=== PATIENT | female | born 1960 | race Caucasian/White ===

== ENCOUNTER 2018-12-23 10:14 | Day surgery (SDC) | payer BC ==
[2018-12-22 09:59] VITALS: BMI 28.6
[~2018-12-23 10:14] MED LIST: LACTATED RINGERS 1,000 ML IV SCH; LIDOCAINE 1% 20 ML VIAL (10MG/ML) FOR IV START INTRADERMA PRN
[2018-12-23 10:49] VITALS: RESP 16; TEMP 97
[2018-12-23] MEDS ORDERED: PROPOFOL 10 MG/ML 20 ML VIAL IV ONE (11:12)
[2018-12-23] MEDS ORDERED: LIDOCAINE 1% INJ 10MG/ML (20 ML MDV) ONE (11:12)
--- NOTE | 2018-12-23 11:43 | P.PCN ---
Date of Procedure: 12/23/18 Procedure(s) Performed: Procedure: Esophagogastroduodenoscopy and biopsy. Preoperative diagnosis: Chronic reflux symptoms and family history of esophageal cancer in her brother. Postoperative diagnosis: 1. Diminutive polyp in the mid-esophagus biopsy. 2. Sliding hiatal hernia with no obvious esophagitis or complicated reflux disease. 3. Mild antral gastritis and minimal duodenitis. 4. Biopsies obtained from the duodenum, antrum and esophagus. Preparation and sedation: Was provided by anesthesia. Brief clinical history: The patient is a 58-year-old female who is scheduled for this evaluation because of chronic reflux symptoms for which she takes as needed [id number] antacids. Her brother had esophageal cancer at age 63. The patient has no alarm symptoms. She had a screening colonoscopy with me in November 2015 because of family history of colon cancer in her mother which was within normal limits but had no prior upper endoscopy. Procedure: With the patient on her left lateral decubitus position and after informed consent and adequate sedation, I passed the Olympus-GIF 190 video upper endoscope through the cricopharyngeus down the esophagus. There was a small/diminutive polyp in the midesophagus which was biopsied. GE junction was around 38 cm from the incisors and there was a sliding hiatal hernia but no obvious esophagitis or any strictures or [place]'s esophagus. The endoscope was then passed into the stomach which was insufflated with air and inspected in detail including the retroflex view in the cardia. There was mottling and erythema in the antrum but no ulcers or erosions. Pyloric channel did not show any ulcers. Duodenal bulb showed minimal erythema but no ulcers. Post bulbar area and descending duodenum were within normal limits. I obtained biopsies from the duodenum, antrum and esophagus in addition to the esophageal polyp then the endoscope was withdrawn. The patient tolerated the procedure well. Plan: The patient was reassured. Will await biopsy results. Further plans will be made based on her course and biopsy results. I would consider repeat upper endoscopy at the time of her screening colonoscopies based on her course.
[2018-12-23 11:49] VITALS: BP 112/74; PULSE 63
== END 2018-12-23 12:21 | disposition home or self-care (01) ==
LOC: ORWHC2ENDO 10:14
DX: K29.50 Unspecified chronic gastritis without bleeding (principal); K29.80 Duodenitis without bleeding; D13.0 Benign neoplasm of esophagus; K21.9 Gastro-esophageal reflux disease without esophagitis; K44.9 Diaphragmatic hernia without obstruction or gangrene; Z80.0 Family history of malignant neoplasm of digestive organs; K58.9 Irritable bowel syndrome, unspecified; E03.9 Hypothyroidism, unspecified; Z79.1 Long term (current) use of non-steroidal anti-inflammatories (NSAID); Z79.82 Long term (current) use of aspirin; Z79.890 Hormone replacement therapy
CPT/HCPCS: 88305; 43239; J2001; J2704

== ENCOUNTER → 2019-01-01 | Outpatient (CLI) | payer BC ==
--- NOTE | 2019-01-01 16:12 | CTL ---
EXAMINATION TYPE: CT Low Dose Lung DATE OF EXAM ORDERED: 01/01/2019 HISTORY: 58-year-old female Personal history of tobacco use. Lung cancer screening CT DLP: 122.[address] CTDI: 3.5 mGy Automated exposure control for dose reduction was used. SCREENING VISIT: Baseline COMPARISON: None TECHNIQUE: Low dose computed tomography scan was performed through the chest at 1 mm thick sections a nd reconstructed images in the coronal/sagittal plane. Additional coronal MIP reconstruction. CT DIAGNOSTIC QUALITY: Satisfactory FINDINGS: Heart normal size with trace anterior basilar pericardial fluid. Aorta normal caliber with a conventional vessel branching anatomy. Scattered nonenlarged mediastinal lymph nodes are present. No thoracic lymphadenopathy. There is mild diffuse bronchial wall thickening and mild biapical pleural-parenchymal scarring. 6 mm anterior right midlung pulmonary nodule axial image 147 is nonspecific. It can be reassessed at follow-up but may represent an intrapulmonary lymph node. 3 mm anterior left upper lobe pulmonary nodule axial image 110. 3 mm anterior left midlung pulmonary nodule axial image 131. No consolidation or pleural effusion. Small hiatal hernia. Visualized upper abdomen otherwise shows no gross abnormality. Bones: No osseous destructive process. IMPRESSION: 1. LungRADS 3 (probably benign, 1-2% chance of malignancy); a 6 mm right midlung pulmonary nodule an d a couple 3 mm pulmonary nodules on the left. 2. Mild diffuse bronchial wall thickening suggesting bronchitis or asthma. 3. Small hiatal hernia. RECOMMENDATION: 1. Six-month follow-up low-dose lung cancer screening CT for reassessment of the nodules. 2. Smoking cessation. FOLLOW UP CT CHEST RECOMMENDATION: [address] LUNG RAD: Lung-Rad 3 Probably Benign
== END ==
LOC: RADCTMAIN 12:28
PROVIDERS: ATTEND Family Medicine
DX: Z12.2 Encounter for screening for malignant neoplasm of respiratory organs (principal); K44.9 Diaphragmatic hernia without obstruction or gangrene; F17.210 Nicotine dependence, cigarettes, uncomplicated

== ENCOUNTER → 2019-01-01 | Outpatient (CLI) | payer BC ==
--- NOTE | 2019-01-01 11:53 | BD ---
EXAMINATION TYPE: Axial Bone Density DATE OF EXAM: 01/01/2019 COMPARISON: NONE CLINICAL HISTORY: 58 YR OLD FEMALE...ICD-10 CODE: M85 OSTEOPENIA Height: 64.5 Weight: 176 FRAX RISK QUESTIONS: 3. Menopause before 45: AT 43 YRS OLD Current Tobacco Use: YES RISK FACTORS HISTORY OF: Diet low in dairy products/other sources of calcium: YES Postmenopausal woman: YES AT ABOUT 43 MEDICATIONS: Thyroid Medications: YES, SYNTHROID FOR ABOUT 20 YRS Osteoporosis Medications: ACTENOL, IN PAST STOPPED 8 YRS AGO Additional Medications: TUMS PRN, MULTIVITAMIN AND B COMPLEX Additional History: SMOKER AND THYROID, OSTEOARTHRITIS EXAM MEASUREMENTS: Bone mineral densitometry was performed using the [employer] System. Bone mineral density as measured about the Lumbar spine is: ----- L1-L4(G/cm2): 1.097 T Score Values are as follows: -----L1: 0.1 ----- L2: -1.6 ----- L3: -0.7 ----- L4: -0.6 ----- L1-L4: -0.7 Bone mineral density FIRST BONE DENSITY AT [facility] Bone mineral density about the R hip (g/cm2): 0.831 Bone mineral density about the L hip (g/cm2): 0.839 T Score values are as follows: -----R Neck: -1.2 -----L Neck: -1.0 -----R Total: -1.4 -----L Total: -1.3 Bone mineral density THIS IS HER FIRST BONE DENSITY AT [facility] FRAX%s: .....THERE IS A 7.3% CHANCE FOR A MAJOR OSTEOPOROTIC FX AND A 0.8% FOR HIP....PROBABILITY OF FX IN 10 YR TIME IMPRESSION: Osteopenia (T Score between -2.5 and -1) overall in both hips. There is slightly increased risk of fracture and the patient may be considered for treatment. Re-Screen 2-5 years. NOTE: T-SCORE=SD OF THE YOUNG ADULT MEAN.
--- NOTE | 2019-01-01 15:03 | MM ---
Reason for exam: clinical finding. History: Patient is postmenopausal and is nulliparous. Benign cyst aspiration of the right breast. Physical Findings: Nurse Summary: 1 x 1cm nodule in the left breast at 3 o'clock (nurse ts). MG 3D Diag Mammo W/Cad ROSE Bilateral CC and MLO view(s) were taken. The breast tissue is heterogeneously dense. This may lower the sensitivity of mammography. There is chronic nodularity in the left inner lower quadrant. Developing asymmetry right upper outer quadrant. These results were verbally communicated with the patient and result sheet given to the patient on 01/01/19. ASSESSMENT: Incomplete: need additional imaging evaluation, BI-RAD 0 RECOMMENDATION: Ultrasound of both breasts. (palpable left, mammographic abnormality right)
--- NOTE | 2019-01-01 15:06 | USB ---
Reason for exam: clinical finding. History: Patient is postmenopausal and is nulliparous. Benign cyst aspiration of the right breast. US Breast Limited BILAT Right limited breast ultrasound including focal area of concern, retroareolar and axilla demonstrates no cystic or solid lesion seen. Left complete breast ultrasound includes all four quadrants, the retroareolar region and axilla. Finding demonstrates a 0.8 x 0.4 x 0.8cm oval, solid, hypoechoic lesion at 8 o'clock. Likely corresponds to chronic nodualrity on mammogram but does not meet ultrasound characteristics for simple cyst so advise sample. These results were verbally communicated with the patient and result sheet given to the patient on 01/01/19. ASSESSMENT: Suspicious, BI-RAD 4 RECOMMENDATION: Ultrasound core biopsy of the left breast. Called Dr. Segovia with mammographic findings and has scheduled an appointment for the patient for 01/21/19 at 4:[address] Segovia. Biopsy scheduled for 01/13/19 at 2:00. PRELIMINARY REPORT CALLED AND FAXED TO DR. SEGOVIA ON 01/01/19.
== END | disposition home or self-care (01) ==
LOC: RADMAMWWP 07:44
PROVIDERS: ATTEND Family Medicine
DX: N63.21 Unspecified lump in the left breast, upper outer quadrant (principal); M85.88 Other specified disorders of bone density and structure, other site
CPT/HCPCS: 77062; 77066; 77080

== ENCOUNTER → 2019-07-06 | Outpatient (CLI) | payer BC ==
--- NOTE | 2019-07-06 10:32 | MM ---
Reason for exam: follow-up at short interval from prior study. Last mammogram was performed 6 months ago. History: Patient is postmenopausal and is nulliparous. Benign US biopsy breast VAD LT of the left breast, January 13, 2019. Benign cyst aspiration of the right breast. Physical Findings: Nurse did not find any significant physical abnormalities on exam. MG 3D Diag Mammo W/Cad ROSE Bilateral CC and MLO view(s) were taken. Prior study comparison: January 13, 2019, left breast MG diagnostic mammo LT wo CAD. January 01, 2019, bilateral MG 3d diag mammo w/cad ROSE. The breast tissue is heterogeneously dense. This may lower the sensitivity of mammography. Previous mammotome biopsy in the left breast. No significant new findings when compared with previous films. These results were verbally communicated with the patient and result sheet given to the patient on 07/06/19. ASSESSMENT: Incomplete: need additional imaging evaluation, BI-RAD 0 RECOMMENDATION: Ultrasound of the left breast. (6 month post biopsy follow up)
--- NOTE | 2019-07-06 10:33 | USB ---
Reason for exam: follow-up at short interval from prior study. History: Patient is postmenopausal and is nulliparous. Benign US biopsy breast VAD LT of the left breast, January 13, 2019. Benign cyst aspiration of the right breast. US Breast Limited LT Left limited breast ultrasound including focal area of concern, retroareolar and axilla demonstrates a 6 x 3 x 6mm oval, hypoechoic lesion at 8 o'clock, previously biopsied 6 months ago, benign and a 3 x 2 x 2mm oval, cystic, benign lesion at 8 o'clock. Scanned 6-9 o'clock. These results were verbally communicated with the patient and result sheet given to the patient on 07/06/19. ASSESSMENT: Benign, BI-RAD 2 RECOMMENDATION: Routine screening mammogram of both breasts in 1 year.
== END | disposition home or self-care (01) ==
LOC: RADMAMWWP 08:59
PROVIDERS: ATTEND Surgery
DX: R92.8 Other abnormal and inconclusive findings on diagnostic imaging of breast (principal)
CPT/HCPCS: 77062; 77066

== ENCOUNTER → 2019-07-08 | Outpatient (CLI) | payer BC ==
--- NOTE | 2019-07-08 13:52 | CT ---
EXAMINATION TYPE: CT chest wo con DATE OF EXAM: 07/08/2019 COMPARISON: Prior low-dose lung screening CT January 01, 2019. HISTORY: Prior abnormal CT CT DLP: 258.9 mGycm. Automated Exposure Control for Dose Reduction was Utilized. TECHNIQUE: CT scan of the thorax is performed without IV contrast. FINDINGS: LUNGS: Prior visualized 6 mm anterior right mid lung nodule is less prominent on current study axial image 31 and coronal image 28 measuring 5 x 2 mm. Stable 3 mm anterior left upper lobe nodule axial i mage 23 current study. Just inferior and lateral to this stable 3 mm left upper lobe nodule axial mirza ge 27. There is 5 x 3 mm superior left lower lobe nodule axial image 34 in retrospect stable from prior stud y image 151. No new greater than 4 mm nodules or masses. No pleural effusion or pneumothorax. MEDIASTINUM: Lack of IV contrast is noted to limit evaluation for mediastinal and especially hilar ad enopathy. There are no definitive greater than 1 cm hilar or mediastinal lymph nodes. No cardiomega ly or pericardial effusion is seen. OTHER: New Biopsy clip medial left breast axial image 40. Cholecystectomy clips are redemonstrated. IMPRESSION: No new or enlarging suspicious nodules. Consider repeat CT in 12-18 months time to docume nt two-year stability.
== END | disposition home or self-care (01) ==
LOC: RADCTMAIN 11:36
PROVIDERS: ATTEND Family Medicine
DX: R91.8 Other nonspecific abnormal finding of lung field (principal)
CPT/HCPCS: 71250

== ENCOUNTER → 2021-02-09 | Outpatient (CLI) | payer BC ==
--- NOTE | 2021-02-09 15:19 | CTL ---
EXAMINATION TYPE: CT Low Dose Lung DATE OF EXAM ORDERED: 02/09/2021 COMPARISON: 07/08/2019 HISTORY: Low Dose CT Lung Screening CT DLP: [address] CTDI: 2.86 mGy IV CONTRAST USED: None. SCREENING VISIT: First visit COMPARISON: None. TECHNIQUE: Low dose computed tomography scan was performed through the chest at 1 millimeter thick se ctions and reconstructed images in the coronal plane at [address] DIAGNOSTIC QUALITY: Satisfactory FINDINGS: LUNG NODULES: 5 mm pulmonary nodule left lower lobe in image 141 is unchanged. 5 mm nodule anterior r ight midlung is stable. No new greater than 4 mm nodules or masses. LUNGS: COPD: Severity: Mild Fibrosis: Severity:None Lymph nodes: None Other findings: None RIGHT PLEURAL SPACE: Effusion: None Calcification: None Thickening: None Pneumothorax: None LEFT PLEURAL SPACE: Effusion: None Calcification: None Thickening: None Pneumothorax: None HEART: Heart Size: Mildly enlarged Coronary calcification: Mild Pericardial effusion: None OTHER FINDINGS: Upper abdomen: No significant abnormality Bony thorax: Degenerative changes Supraclavicular region: No significant abnormality Other: No significant abnormalityI IMPRESSION: Benign FOLLOW UP CT CHEST RECOMMENDATION: Follow-up screening in one year. CT LUNG RAD: LUNG RAD CATEGORY lung RADS 2 benign behavior or appearance.
== END | disposition home or self-care (01) ==
LOC: RADCTMAIN 14:28
PROVIDERS: ATTEND Family Medicine
DX: Z12.2 Encounter for screening for malignant neoplasm of respiratory organs (principal); Z87.891 Personal history of nicotine dependence
CPT/HCPCS: 71271

== ENCOUNTER → 2021-04-04 | Outpatient (CLI) | payer BC ==
--- NOTE | 2021-04-06 08:32 | MM ---
Reason for exam: screening (asymptomatic). Last mammogram was performed 1 year and 9 months ago. History: Patient is postmenopausal and is nulliparous. Benign US biopsy breast VAD LT of the left breast, January 13, 2019. Benign cyst aspiration of the right breast. Physical Findings: A clinical breast exam by your physician is recommended on an annual basis and results should be correlated with mammographic findings. MG Screening Mammo w CAD Bilateral CC and MLO view(s) were taken. Prior study comparison: July 06, 2019, bilateral MG 3d diag mammo w/cad ROSE. January 13, 2019, left breast MG diagnostic mammo LT wo CAD. January 01, 2019, bilateral MG 3d diag mammo w/cad ROSE. The breast tissue is heterogeneously dense. This may lower the sensitivity of mammography. There are benign appearing round calcifications bilaterally. Previous mammotome biopsy in the left breast. There is no discrete abnormality. ASSESSMENT: Benign, BI-RAD 2 RECOMMENDATION: Routine screening mammogram of both breasts in 1 year.
== END | disposition home or self-care (01) ==
LOC: RADMAMWWP 13:13
PROVIDERS: ATTEND Family Medicine
DX: Z12.31 Encounter for screening mammogram for malignant neoplasm of breast (principal); Z78.0 Asymptomatic menopausal state
CPT/HCPCS: 77067

== ENCOUNTER → 2021-04-26 | Outpatient (CLI) | payer BC ==
--- NOTE | 2021-04-28 09:35 | BD ---
EXAMINATION TYPE: Axial Bone Density DATE OF EXAM: 04/26/2021 COMPARISON: 01/01/2019 CLINICAL HISTORY: Height: 64.7 Weight: 178 LBS FRAX RISK QUESTIONS: Secondary Osteoporosis: Current Tobacco Use: YES RISK FACTORS HISTORY OF: Active: YES Diet low in dairy products/other sources of calcium: YES Postmenopausal woman: AGE 45 MEDICATIONS: Thyroid Medications: YES Which medication: Levothyroxine How Lon+ YEARS Osteoporosis Medications: NOT NOW Which medication: Actonel How Long: TOOK PREVIOUSLY FOR 2 YEARS Additional Medications: CALCIUM, VIT D, LEVOTHYROXINE, EXAM MEASUREMENTS: Bone mineral densitometry was performed using the [email or web address] System. Bone mineral density as measured about the Lumbar spine is: ----- L1-L4(G/cm2): 1.056 T Score Values are as follows: ----- L2: -1.9 ----- L3: -1.2 ----- L4: -0.7 ----- L1-L4: -1.0 Bone mineral density has: Decreased -3.0% since study of: 01/01/2019 Bone mineral density about the R hip (g/cm2): 0.860 Bone mineral density about the L hip (g/cm2): 0.959 T Score values are as follows: -----R Neck: -1.3 -----L Neck: -0.6 -----R Total: -1.6 -----L Total: -1.4 Bone mineral density has: Decreased -2.3% since study of: 01/01/2019 FRAX Major osteoporotic fracture risk is 7.9% and hip fracture risk is 1.1% in 10 year probability of fracture. IMPRESSION: Osteopenia (T Score between -2.5 and -1). There is slightly increased risk of fracture and the patient may be considered for treatment. Re-Screen 2-5 years. NOTE: T-SCORE=SD OF THE YOUNG ADULT MEAN.
== END | disposition home or self-care (01) ==
LOC: RADBDWWP 09:18
PROVIDERS: ATTEND Family Medicine
DX: M85.89 Other specified disorders of bone density and structure, multiple sites (principal); Z72.0 Tobacco use
CPT/HCPCS: 77080

== ENCOUNTER 2021-05-16 06:46 | Day surgery (SDC) | payer BC ==
[2021-05-11 17:12] VITALS: BMI 29.1
[~2021-05-16 06:46] MED LIST changes: -LIDOCAINE 1% 20 ML VIAL (10MG/ML) FOR IV START INTRADERMA PRN
[2021-05-16 07:11] VITALS: TEMP 97
[2021-05-16] MEDS ORDERED: LIDOCAINE 1% (10MG/ML) FOR IV START INTRADERMA ONE (07:20)
[2021-05-16] MEDS ORDERED: LIDOCAINE 1% INJ 10MG/ML (20 ML MDV) ONE (07:30)
[2021-05-16] MEDS ORDERED: PROPOFOL 10 MG/ML 20 ML VIAL IV ONE (07:30)
[2021-05-16] MEDS ORDERED: IV FLUID CONTINUATION 1,000 ML IV ONE (08:15)
--- NOTE | 2021-05-16 08:18 | P.PCN ---
Date of Procedure: 05/16/21 Description of Procedure: Brief history: Patient is a pleasant 61-year-old female presenting for an esophagogastroduodenoscopy and colonoscopy for evaluation of heartburn and family history of colon cancer. Patient reports family history of colon cancer in her mother and esophageal cancer in her brother. She presents for further evaluation. No change in bowel habits or blood per rectum. Last colonoscopy 5 years ago. Procedure performed: Esophagogastroduodenoscopy with biopsy Colonoscopy with polypectomy Estimated blood loss: Minimal. Preoperative diagnosis: Heartburn, family history of colon cancer, last colonoscopy 5 years ago Anesthesia: MAC Procedure: After informed consent was obtained from the patient was brought into the endoscopy unit and IV sedation was administered by anesthesia under continuous monitoring. Initially upper endoscopy was done. The Olympus GF 190 video endoscope was inserted into the mouth and esophagus intubated without any difficulty and was gradually advanced into the stomach and duodenum and carefully examined. The bulb and second part of the duodenum appeared normal, with biopsies taken. The scope was then withdrawn into the stomach adequately insufflated with air and upon careful examination the antrum and body, cardia a nd fundus appeared normal, except for some mild punctate erythema in the antrum and body suggestive of mild gastritis biopsies taken. The scope was then withdrawn into the esophagus. The GE junction was located at 37 cm to the incisors with biopsies of the lower esophagus and, but there was some mild irritation in the lower esophagus suggestive of LA grade a distal esophagitis with biopsies of the lower esophagus taken. It appeared regular with no erythema erosions or ulcerations. Rest of the esophagus appeared normal. Patient tolerated the procedure well. At this time the patient continued to remain sedation. Initial digital rectal examination was normal. Olympus CF 190 video colonoscope was then inserted into the rectum and gradually advanced to the cecum without any difficulty. Careful examination was performed as the scope was gradually being withdrawn. The prep was excellent. The cecum, ascending colon, transverse colon, descending colon, sigmoid colon and rectum appeared normal. Diminutive polyps measuring 1-2 mm in size removed from the ascending colon and rectum. Retroflexion was performed in the rectum and no lesions were noted, low-grade internal hemorrhoids seen. Patient tolerated the procedure well. Impression: 1. Mild gastritis. LA grade a distal esophagitis. Biopsies of the duodenum, antrum body and lower esophagus. 2. Diminutive polyps removed from the ascending colon and rectum with cold forceps polypectomy. Recommendations: Findings of this examination were discussed with the patient as well as her family. Okay to resume diet. Okay to resume medications. Await pathology from biopsies and polypectomy. Recommend repeat colonoscopy in 5 years for family history of colon cancer. Patient can continue [id number] antacids such as Pepcid as needed for reflux.
[2021-05-16 08:31] VITALS: BP 99/66; PULSE 67; RESP 14
== END 2021-05-16 09:15 | disposition home or self-care (01) ==
LOC: ORWHC2ENDO 06:46
PROVIDERS: ATTEND Internal Medicine
DX: Z12.11 Encounter for screening for malignant neoplasm of colon (principal); D12.2 Benign neoplasm of ascending colon; D12.8 Benign neoplasm of rectum; K64.8 Other hemorrhoids; K20.90 Esophagitis, unspecified without bleeding; Z80.0 Family history of malignant neoplasm of digestive organs; Z90.89 Acquired absence of other organs; Z90.49 Acquired absence of other specified parts of digestive tract; Z98.890 Other specified postprocedural states; F17.210 Nicotine dependence, cigarettes, uncomplicated; E07.9 Disorder of thyroid, unspecified; M19.90 Unspecified osteoarthritis, unspecified site; Z79.890 Hormone replacement therapy
CPT/HCPCS: 88305; 45380; 43239; J2001; J2704

== ENCOUNTER → 2022-02-12 | Outpatient (CLI) | payer BC ==
--- NOTE | 2022-02-12 14:39 | CTL ---
EXAMINATION TYPE: CT Low Dose Lung DATE OF EXAM ORDERED: 02/12/2022 HISTORY: . Lung cancer screening CT DLP: 105.[address] CTDI: 3.2 mGy Automated exposure control for dose reduction was used. SCREENING VISIT: COMPARISON: 02/09/2021 TECHNIQUE: Low dose computed tomography scan was performed through the chest at 1 mm thick sections a nd reconstructed images in multiple planes at 1 mm and [address] DIAGNOSTIC QUALITY: Satisfactory FINDINGS: Biapical pleural thickening and changes of mild COPD. Subpleural nodules noted involving the lung api ana measuring less than 5 mm are stable. No pleural effusion or pneumothorax. No pleural parenchymal calcifications. 5 mm right lower lobe nodule stable. Right midlung nodule not as well seen on today's exam. Faint groundglass changes superior segment left upper lobe likely related to localized atelect asis Heart size stable. Atherosclerotic change of the aorta. No evidence of aneurysm. Shotty adenopathy in the mediastinum. Calcification the tracheobronchial tree. Hypertrophic and degenerative changes of t he spine. Small hiatal hernia noted. IMPRESSION: 1. Stable pulmonary nodules unchanged from prior exam. 2. Correlate for mild COPD CT LUNG RAD AND CT CHEST RECOMMENDATION: Lung-Rad 2 Benign Appearance or Behavior: Continue annual sc reening with LDCT in 12 months.
== END | disposition home or self-care (01) ==
LOC: RADCTMAIN 11:25
PROVIDERS: ATTEND Family Medicine
DX: Z12.2 Encounter for screening for malignant neoplasm of respiratory organs (principal); R91.8 Other nonspecific abnormal finding of lung field; Z87.891 Personal history of nicotine dependence
CPT/HCPCS: 71271

== ENCOUNTER → 2022-03-29 | Outpatient (CLI) | payer BC ==
--- NOTE | 2022-03-29 16:11 | XR ---
EXAMINATION TYPE: XR Hip Bilateral Complete DATE OF EXAM: 03/29/2022 COMPARISON: NONE INDICATION: Bilateral hip pains. TECHNIQUE: 2 views of each hip joint. FINDINGS: Moderate to marked degenerative changes of the hip joints more on the left side. No definite acute fr acture line identified. No femoral head dislocation or significant subluxation. Degenerative changes of the inferior aspect o f the right sacroiliac joint. IMPRESSION: Degenerative changes of the hip joints more on the left side.
== END | disposition home or self-care (01) ==
LOC: RADXRMAIN 14:07
PROVIDERS: ATTEND Family Medicine
DX: M16.0 Bilateral primary osteoarthritis of hip (principal)
CPT/HCPCS: 73521

== ENCOUNTER → 2022-04-19 | Outpatient (CLI) | payer BC ==
--- NOTE | 2022-04-23 17:38 | MM ---
Reason for Exam: Screening (asymptomatic). Last screening mammogram was performed 12 month(s) ago. Patient History: Menarche at age 8. Patient has no children. Postmenopausal. Benign Cyst Aspiration on the right side. 01/13/2019, Benign Core Biopsy on the left side. Risk Values: Sarah 5 year model risk: 2.3%. NCI Lifetime model risk: 9.2%. Prior Study Comparison: 01/13/2019 Left Diagnostic Mammogram, [facility]. 07/06/2019 Bilateral Diagnostic Mammogram, [facility]. 04/04/2021 Bilateral Screening Mammogram, [facility]. Tissue Density: The breast tissue is heterogeneously dense. This may lower the sensitivity of mammography. Findings: Analyzed By CAD. Areas of bilateral asymmetric densities remain unchanged. Microclip medial left breast from prior biopsy. No significant change from prior exams. Overall Assessment: Benign, BI-RAD 2 Management: Screening Mammogram of both breasts in 1 year. 1. Patient should continue monthly self breast exams. 2. A clinical breast exam by your physician is recommended on an annual basis. 3. This exam should not preclude additional follow-up of suspicious palpable abnormalities. Electronically signed and approved by: Sofy Enrique M.D. Radiologist
== END | disposition home or self-care (01) ==
LOC: RADMAMWWP 09:54
PROVIDERS: ATTEND Family Medicine
DX: Z12.31 Encounter for screening mammogram for malignant neoplasm of breast (principal); Z78.0 Asymptomatic menopausal state
CPT/HCPCS: 77067

== ENCOUNTER → 2023-01-17 | Outpatient (CLI) | payer BC ==
--- NOTE | 2023-01-17 12:42 | XR ---
EXAMINATION TYPE: XR tibia fibula LT DATE OF EXAM: 01/17/2023 12:29 PM INDICATION: Patient age:Female; 62 years old; Reason for study: M79.662; COMPARISON: None TECHNIQUE: The left tibia/fibula was examined in AP and lateral projections. FINDINGS: No evidence of any acute osseous pathology, joint dislocation, or soft tissue swelling is n oted. IMPRESSION: No evidence of acute fracture.
== END | disposition home or self-care (01) ==
LOC: RADXRMAIN 11:42
PROVIDERS: ATTEND Family Medicine
DX: M79.662 Pain in left lower leg (principal)

== ENCOUNTER → 2023-02-12 | Outpatient (CLI) | payer BC ==
--- NOTE | 2023-02-12 11:39 | CTL ---
EXAMINATION TYPE: CT Low Dose Lung DATE OF EXAM ORDERED: 02/12/2023 HISTORY: . Lung cancer screening CT DLP: 74.[address] CTDI: 2.3 mGy Automated exposure control for dose reduction was used. SCREENING VISIT: COMPARISON: 02/12/2022 TECHNIQUE: Low dose computed tomography scan was performed through the chest at 1 mm thick sections a nd reconstructed images in multiple planes at 1 mm and [address] DIAGNOSTIC QUALITY: Satisfactory FINDINGS: Biapical pleural thickening and changes of mild COPD. Subpleural nodules noted involving the lung api ana measuring less than 5 mm are stable. No pleural effusion or pneumothorax. No pleural parenchymal calcifications. 5 mm right lower lobe nodule stable image 141. 5 mm left lower lobe nodule image 151 stable. 3 mm left upper lobe nodule axial image 121 stable. 5 mm nodule lobulated 5 stable left lower lobe Groundglass faint density superior segment left lower lobe axial image 66 measures 6 mm and stable Heart size stable. Atherosclerotic change of the aorta. No evidence of aneurysm. Shotty adenopathy in the mediastinum. Calcification the tracheobronchial tree. Hypertrophic and degenerative changes of t he spine. Small hiatal hernia noted. IMPRESSION: 1. Stable bilateral pulmonary nodules unchanged prior exam. Correlate for mild COPD. CT LUNG RAD AND CT CHEST RECOMMENDATION: Lung-Rad 2 Benign Appearance or Behavior: Continue annual sc reening with LDCT in 12 months.
== END | disposition home or self-care (01) ==
LOC: RADCTMAIN 10:53
PROVIDERS: ATTEND Family Medicine
DX: Z12.2 Encounter for screening for malignant neoplasm of respiratory organs (principal); J44.9 Chronic obstructive pulmonary disease, unspecified; R91.8 Other nonspecific abnormal finding of lung field; F17.210 Nicotine dependence, cigarettes, uncomplicated
CPT/HCPCS: 71271

== ENCOUNTER → 2023-03-04 | Outpatient (CLI) | payer BC ==
[2023-03-04 10:38] LABS: INR 0.9 (<1.2); Partial Thromboplastin Time 23.4 sec (22.0-30.0); Prothrombin Time 9.9 sec (9.0-12.0)
[2023-03-04 15:41] LABS: Appearance,Urine Clear (Clear); Bilirubin,Urine Negative (Negative); Blood,Urine Negative (Negative); Color,Urine Yellow (Yellow); Ketones,Urine Negative (Negative); Nitrite,Urine Negative (Negative); PH, Urine 6.5 (5.0-8.0); Urobilinogen,Urine 0.2 (0.2,1.0)
[2023-03-04 15:47] LABS: Bacteria,Urine None Seen /HPF (None Seen)
[2023-03-04 16:10] LABS: African American GFR (CKD) 85.5 (60.0-200.0); Albumin 4.5 g/dL (3.8-4.9); Albumin/Globulin Ratio 1.88 (1.60-3.17); Anion Gap 7.9 mmol/L (10.00-18.00); BUN/Creat Ratio 26.16 Ratio (12.00-20.00); Blood Urea Nitrogen 21.9 mg/dL (9.0-27.0); Calcium 9.8 mg/dL (8.7-10.3); Carbon Dioxide 29.3 mmol/L (20.0-27.5); Globulin 2.4 g/dL (1.6-3.3); Non-African American GFR(CKD) 73.8 (60.0-200.0); Potassium 4.8 mmol/L (3.5-5.5); Total Bilirubin 0.2 mg/dL (0.30-1.20); Total Protein 6.9 g/dL (6.2-8.2)
[2023-03-04 16:47] LABS: HCT 44.9 % (37.2-46.3); HGB 14.4 g/dL (12.0-15.0); MCH 30.3 pg (27.0-32.0); MCHC 32.1 g/dL (32.0-37.0); MCV 94.5 fL (80.0-97.0); Mean Platelet Volume 11.7 fL (9.5-12.2); NRBC Per 100 WBC 0 /100 WBCS (0.0-0.0); Platelet Count 242 X 10*3/uL (140-440); RBC 4.75 X 10*6/uL (4.10-5.20); RDW 13.9 % (11.5-14.5); WBC 6.44 X 10*3/uL (4.50-10.00)
== END | disposition home or self-care (01) ==
LOC: LABPAT 09:30
PROVIDERS: ATTEND Orthopaedic Surgery
DX: Z01.812 Encounter for preprocedural laboratory examination (principal)
CPT/HCPCS: 80053; 81001; 85027; 85610; 85730; 87070

== ENCOUNTER 2023-03-12 05:32 | Day surgery (SDC) | payer BC ==
[2023-03-07 08:40] VITALS: BMI 29.1
[~2023-03-12 05:32] MED LIST changes: +ACETAMINOPHEN TAB 500 MG TAB PO PRN; +GABAPENTIN 300 MG CAP PO PRN; -LACTATED RINGERS 1,000 ML IV SCH; +MELOXICAM 7.5 MG TAB PO PRN; +TRANEXAMIC ACID IN NACL,ISO-OS 1,000 MG in SALINE 1 100ML.BAG IVPB PRN
[2023-03-12] MEDS ORDERED: LIDOCAINE 1% (10MG/ML) FOR IV START INTRADERMA PRN (05:44)
[2023-03-12] MEDS ORDERED: MIDAZOLAM 2 MG/2 ML VIAL IV PRN (05:44)
[2023-03-12] MEDS ORDERED: ONDANSETRON 4 MG/2 ML VIAL IVP ONE (05:44)
[2023-03-12] MEDS ORDERED: DEXAMETHASONE SOD PHOSPHATE 4 MG/ML 1 ML VIAL IV ONE (05:44)
[2023-03-12] MEDS ORDERED: LACTATED RINGERS 1,000 ML IV SCH (05:44)
[2023-03-12] MEDS ORDERED: fentaNYL (PF) 50 MCG/ML 2 ML AMP IVP ONE (06:34)
[2023-03-12] MEDS ORDERED: MIDAZOLAM 2 MG/2 ML VIAL IVP ONE (06:34)
[2023-03-12] MEDS ORDERED: LIDOCAINE 2% INJ 20 MG/ML (2 ML VIAL) ONE (06:55)
[2023-03-12] MEDS ORDERED: MIDAZOLAM 2 MG/2 ML VIAL ONE (06:55)
[2023-03-12] MEDS ORDERED: SODIUM CHLORIDE 0.9% (PF) 10 ML VIAL ONE (06:55)
[2023-03-12] MEDS ORDERED: TRANEXAMIC ACID IN NACL,ISO-OS 1,000 MG/100 ML BAG ONE (06:55)
[2023-03-12] MEDS ORDERED: HYDROmorphone (PF) 1 MG/ML ONE (06:55)
[2023-03-12] MEDS ORDERED: fentaNYL (PF) 50 MCG/ML 2 ML AMP ONE (06:55)
[2023-03-12] MEDS ORDERED: DEXAMETHASONE SOD PHOSPHATE 4 MG/ML 1 ML VIAL ONE (06:55)
[2023-03-12] MEDS ORDERED: ROPIVACAINE 5 MG/ML 30 ML VIAL ONE (06:55)
[2023-03-12] MEDS ORDERED: PROPOFOL 10 MG/ML 20 ML VIAL IV ONE (06:55)
[2023-03-12] MEDS ORDERED: SUCCINYLCHOLINE CHLORIDE 200 MG/10 ML VIAL IV ONE (06:55)
[2023-03-12] MEDS ORDERED: ROCURONIUM 10 MG/ML (5 ML VIAL) IV ONE (06:55)
[2023-03-12] MEDS ORDERED: HYDROmorphone 0.5 MG/0.5 ML SYRINGE IVP PRN ×3 (07:00→08:39)
[2023-03-12] MEDS ORDERED: ceFAZolin 1,000 MG in SODIUM CHLORIDE 0.9% 1,000 ML IRRIGATION ONE (07:02)
--- NOTE | 2023-03-12 07:25 | P.ANPRN ---
Procedure Note - Anesthesia - Nerve Block Performed Left Sandip Time Out Performed: Yes (:33) Date of Procedure: 03/12/23 Procedure Start Time: Procedure Stop Time: :38 Location of Patient: PreOp Indication: Acute Post-Operative Pain, Requested by Surgeon (Dr Jean Marie Cabrera) Sedation Type: Sedate with meaningful contact maintained Preparation: Sterile Prep Position: Supine Catheter: None Needle Types: Pajunk Needle Gauge: 21 Ultrasound used to visualize needle placement: Yes Ultrasound used to observe medication spread: Yes Injectate: 0.5% Ropivacaine (see comment for volume) (20cc +5cc PF Normal saline. Decadron 4mg) Blood Aspirated: No Pain Paresthesia on Injection Noted: No Resistance on Injection: Normal Image Stored and Saved: Yes Events: Uneventful and Well Tolerated
[2023-03-12] MEDS ORDERED: ROPIVACAINE 5 MG/ML 30 ML VIAL MISCELLANE ONE ×2 (07:30→08:12)
--- NOTE | 2023-03-12 08:21 | P.OP ---
Date of Procedure: 03/12/23 Preoperative Diagnosis: Severe osteoarthritis left hip Postoperative Diagnosis: Severe osteoarthritis left hip Procedure(s) Performed: Left total hip arthroplasty with a direct anterior approach Implants: [employer]hew Polarstem standard size 1 with a collar [employer] R3, 3 hole hemispherical acetabular shell, 50 mm [employer] Reflection 6.5 mm cancellus screw, 20 mm 2 [employer] R3, XLPE 20 acetabular liner [employer]hew Oxinium femoral head 36 m, +8 All components were press-fit. The articulation is Oxinium on polyethylene. Anesthesia: GETA Surgeon: Jean Marie Cabrera Flooring Machine Feeder #1: Laisha Rebollar Estimated Blood Loss (ml): 600 Pathology: none sent Condition: stable Disposition: PACU Indications for Procedure: After failure of conservative treatment we discussed the surgical and nonsurgical treatment options at length. Patient wishes to proceed with a total hip arthroplasty with a direct anterior approach. Complications specific to this procedure were discussed at length, including but not limited to infection, leg length discrepancy, dislocation, nerve injury, and fracture. Covid-19 was also discussed at length with the patient, and they are aware of the current policies and procedures. The patient was given the option of delaying surgery, but they elect to proceed knowing these risks. Patient is aware of all these complications and informed consent was obtained Operative Findings: The operative findings are consistent with severe osteoarthritis the left hip Description of Procedure: The patient was seen and evaluated in the preoperative area and the consent was reviewed. The operative site was marked with a skin marker. The patient verified the procedure and operative site. A JOSÉ MIGUEL block was placed by jose g denise in the preoperative area. The patient was then brought to the operating room and given preoperative antibiotics intravenously. 1 g of Tranexamic acid was also given intravenously. A general anesthetic was administered by the anesthesia department. The patient was then placed on the Gurdon table with the bony prominences well-padded. The hip area was then prepped with a ChloraPrep solution and draped in the usual sterile fashion. A universal timeout was then performed, which confirmed the patient's name, surgical site, ALLERGIES, and procedure being performed on the consent. Next t he incision site was located at 1 cm distal and 4 cm lateral to the anterior superior iliac spine. The skin and subcutaneous tissues were sharply incised. Incision was carefully dissected down to the fascia overlying the tensor fascia no muscle. This fascia was then incised in line with the muscle fibers. Care was taken to stay laterally in order to avoid injuring the lateral femoral cutaneous nerve. Next, using blunt finger dissection, the tensor fascia no muscle was dissected off its investing fascia. The muscle was then carefully retracted laterally with a cobra retractor over the lateral neck of the femur. Next, the circumflex vessels were identified and cauterized using the Aquamantis device. The anterior hip capsule was then exposed. The capsule was then opened and an inverted T fashion. The retractors were then placed intracapsularly. The retractors were maintained intracapsular throughout the procedure. The proximal femur was then visualized. Fluoroscopic x-rays were then taken in order to evaluate the preoperative leg lengths. A small amount of traction was placed on the leg. The femoral neck was then osteotomized at the appropriate level above the lesser trochanter. A small wedge of bone was then removed from the remaining femoral head. Next, using a corkscrew the femoral head was removed from the acetabulum. On gross visual inspection, the femoral head had complete loss of articular cartilage and multiple periarticular osteophytes. The femoral head was then measured. Attention was then turned to the acetabulum. The acetabulum was exposed and any remaining labrum was excised. Sequential reaming of the acetabulum was performed using fluoroscopic guidance until there was a good bed of bleeding cancellus bone. When the appropriate size was reached, a trial was then placed. The position and fit of the trial was checked with fluoroscopy. The trial was then removed. Then, using fluoroscopic guidance, the final implant was impacted at 20 of anteversion and 40 of abduction, and fully seated in the acetabulum. 2 screws were then placed in the acetabulum. Again fluoroscopy was used to check position of the screws. Next, the liner was then impacted, with a 20 elevated liner located in the anterior superior quadrant. Component locking was confirmed. Attention was then directed to the femur. With the aid of the Gurdon table, the femur was externally rotated to approximately 130, extended, and adducted under the opposite leg. A side hook was then placed under the proximal femur, and the side hook elevator was used to elevate the proximal femur while releasing the capsule. Retractors were then placed. A capsular release was performed, as well as a release of the conjoined tendon, which afforded excellent visualizat ion of the proximal femur. Next, a box osteotome was used to lateralize the proximal femur. A hand touch up painter was then used to locate the femoral canal. Sequential broaching was then performed with appropriate size which afforded excellent fixation in the proximal femur. A trial was then placed with appropriate head and neck, and the hip was gently reduced with the aid of the Gurdon table. Fluoroscopy was then used to check position of the components, as well as to evaluate the leg lengths and offset. The leg lengths and offset were measured as closely as possible to ensure stability of the hip. The hip was then gently dislocated and the trials were then removed. Final implants were then impacted and the hip was again reduced. Final fluoroscopic x-rays confirmed that the components were in anatomic position. The leg lengths and offset were measured and were found to coincide with the trial measurements. The hip was also taken through range of motion, and found to be stable. The hip was then copiously irrigated with antibiotic solution with pulsatile lavage. The hip was then irrigated with Irrisept solution. The soft tissues were then injected with a ropivacaine solution. A second dose of 1 g of Tranexamic acid was also given intravenously. The fascia was then closed with 2-0 strata fix suture. The subcutaneous tissue was closed with 3-0 Vicryl. The subcuticular tissue was closed with 3-0 strata fix suture. The skin was then closed with Exofin skin glue. After the glue and dried, and Optifoam silver impregnated dressing was applied. The patient was then transferred to the recovery room in stable condition. The communication assistant ALETHEA Rangel was required due to the complexity of surgery, and the need for skilled surgical elastic knitter hand frame for positioning, draping, exposure, retraction, and closure of the wound.
[2023-03-12] MEDS ORDERED: HYDROmorphone 1 MG/ML 1 ML SYRINGE IVP PRN (08:39)
[2023-03-12] MEDS ORDERED: NALOXONE 0.4 MG/ML 1 ML VIAL IV PRN (08:39)
[2023-03-12] MEDS ORDERED: MAGNESIUM HYDROXIDE 2,400 MG/10 ML CUP PO PRN (08:39)
[2023-03-12] MEDS ORDERED: ONDANSETRON 4 MG/2 ML VIAL IVP PRN (08:39)
[2023-03-12] MEDS ORDERED: HYDROcodone/APAP 7.5-325MG 1 EACH TAB PO PRN ×2 (08:40)
[2023-03-12] MEDS ORDERED: SODIUM CHLORIDE 0.9% 1,000 ML IV SCH (08:45)
[2023-03-12 08:51] VITALS: RESP 16; TEMP 97.8
--- NOTE | 2023-03-12 09:25 | FL ---
EXAMINATION TYPE: FL guidance operating room, XR Hip Limited LT DATE OF EXAM: 03/12/2023 COMPARISON: NONE HISTORY: 62-year-old female injured left hip replacement FINDINGS: 2 intraoperative fluoroscopic images during placement of left hip total arthroplasty. FLUOROSCOPY Fluoroscopy time of 1 minute 7 seconds was used during anterior left hip replacement. 2 image/s docu ment/s the procedure. DOSE AREA PRODUCT (DAP) UGY*M,MGY*CM: 1.368. IMPRESSION: Intraoperative fluoroscopy as above.
--- NOTE | 2023-03-12 09:48 | XR ---
EXAMINATION TYPE: XR Hip Limited LT DATE OF EXAM: 03/12/2023 Comparison: None Clinical History: 62-year-old female Status post hip surgery, assess surgical alignment Findings: Images placement of left total hip arthroplasty. Acetabular cup and femoral stem components of the pr osthesis are well seated without periprosthetic fracture. Alignment grossly anatomic. Soft tissue air related to recent operation. Impression: Uncomplicated postoperative appearance left hip total arthroplasty.
[2023-03-12] MEDS ORDERED: HYDROcodone/APAP 7.5-325MG 1 EACH TAB PO ONE (10:30)
[2023-03-12 12:17] VITALS: BP 107/60; PULSE 66
[2023-03-12] MEDS ORDERED: SENNOSIDES-DOCUSATE SODIUM 1 EACH TAB PO SCH (21:00)
== END 2023-03-12 12:50 | disposition home health service (06) ==
LOC: OR 05:32
PROVIDERS: ATTEND Orthopaedic Surgery
DX: M16.12 Unilateral primary osteoarthritis, left hip (principal); E03.9 Hypothyroidism, unspecified; K21.9 Gastro-esophageal reflux disease without esophagitis; F17.210 Nicotine dependence, cigarettes, uncomplicated; F10.20 Alcohol dependence, uncomplicated; Z87.19 Personal history of other diseases of the digestive system; Z79.890 Hormone replacement therapy; Z79.1 Long term (current) use of non-steroidal anti-inflammatories (NSAID); Z79.899 Other long term (current) drug therapy
CPT/HCPCS: 27130; 97110; 97161; 64447; 86900; 86901; 86850; 88300; 73501; C1776; J2250; J0330; J1100; J0690 ×2; J2405; J3010; J1170 ×2; J2795; J2704; J2001

== ENCOUNTER → 2024-01-20 | Outpatient (CLI) | payer MEDICARE ==
--- NOTE | 2024-01-20 09:52 | MM ---
Reason for Exam: Clinical finding. Last mammogram was performed 1 year(s) and 10 month(s) ago. Indicated Problems: Lump or thickening of the left side. Patient History: Menarche at age 8. Patient has no children. Postmenopausal. Benign Cyst Aspiration on the right side. 01/13/2019, Benign Core Biopsy on the left side. Risk Values: Sarah 5 year model risk: 2.4%. NCI Lifetime model risk: 8.9%. Prior Study Comparison: 07/06/2019 Bilateral Diagnostic Mammogram, [facility]. 07/06/2019 Left Diagnostic Ultrasound, [facility]. 04/04/2021 Bilateral Screening Mammogram, [facility]. 04/19/2022 Bilateral MG screening mammo w CAD, [facility]. Tissue Density: The breasts are heterogeneously dense, which may obscure small masses. Findings: Analyzed By CAD. The pattern is symmetrical. Core markers within the left breast. Punctate calcifications are present within the left breast. Small coarse calcification in the right breast. 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 The patient does not feel this area this time. Ultrasound is recommended for additional workup. No suspicious groups of microcalcifications, spiculated or lobular masses, architectural distortion or other secondary signs of malignancy are mammographically apparent. Overall Assessment: Incomplete: need additional imaging evaluation, BI-RAD 0 Management: Diagnostic Breast Ultrasound of the left breast. A negative mammogram report should not preclude additional follow up of suspicious palpable abnormalities. Patient should continue monthly self breast exam. A clinical breast exam by your physician is recommended on an annual basis and results should be correlated with mammographic findings. Electronically signed and approved by: Martínez Jiménez D.O. Radiologis
--- NOTE | 2024-01-20 10:52 | USB ---
Reason for Exam: Clinical finding. Patient History: Menarche at age 8. Patient has no children. Postmenopausal. Benign Cyst Aspiration on the right side. 01/13/2019, Benign Core Biopsy on the left side. Risk Values: Sarah 5 year model risk: 2.4%. NCI Lifetime model risk: 8.9%. Technique: Method: Targeted. Prior Study Comparison: 07/06/2019 Bilateral Diagnostic Mammogram, [facility]. 04/04/2021 Bilateral Screening Mammogram, [facility]. 04/19/2022 Bilateral MG screening mammo w CAD, [facility]. Findings: The lateral section of the breast of the left breast and the axilla of the left breast were scanned. No solid or cystic masses are identified.. Within the axilla there are several lymph nodes present. One lymph node has some minimal thickening of the cortex at 0.34 cm. Normal less than 0.3 cmThis. Could be reactive lymphadenopathy and short-term follow-up in 3 months is recommended.No solid or cystic masses are identified.. Within the axilla there are several lymph nodes present. One lymph node has some minimal thickening of the cortex at 0.34 cm. Normal less than 0.3 cm. This could be reactive lymphadenopathy and short-term follow-up in 3 months is recommended. Overall Assessment: Probably benign, BI-RAD 3 Management: Diagnostic Breast Ultrasound of the left breast in 3 months. A clinical breast exam by your physician is recommended on an annual basis and results should be correlated with mammographic findings. This exam should not preclude additional follow-up of suspicious palpable abnormalities. Results were given to the patient verbally at the time of exam. Electronically signed and approved by: Martínez Jiménez D.O. Radiologis
== END | disposition home or self-care (01) ==
LOC: RADMAMWWP 09:27
PROVIDERS: ATTEND Family Medicine
DX: N63.20 Unspecified lump in the left breast, unspecified quadrant (principal); N64.4 Mastodynia; Z78.0 Asymptomatic menopausal state
CPT/HCPCS: 77066; 76642; G0279; 77062

== ENCOUNTER → 2024-01-22 | Outpatient (CLI) | payer MEDICARE ==
--- NOTE | 2024-01-22 10:55 | CA ---
Exercise Stress Test Report Name: Vanesa Mckoy Exam Date: 01/22/2024 09:49 Exam Location: [facility] Ht (in): 65 Wt (lb): 182 BSA: 1.90 Ordering Phys: Emy Segovia MD Referring Phys: Emy Segovia MD Technologist: Valentin Domínguez Age: 63 Gender: F : 1960 Procedure CPT: Indications: R07.9 CHEST PAIN R06.02 SOB R00.0 TACHYCARDIA ICD-10 Codes: Patient History: CHEST PAIN, UMA, FAMILY HX OF HEART DISEASE, CURRENT SMOKER Medications: LEVOTHYROXINE, NEPROXINE Meds past 24 hrs: Pretest Chest Pain: STRESS TEST Everardo Protocol Exercise Duration (min:sec): 03:[address] Depressions (mm): Angina Score: Crawley Score: Resting HR (bpm): 87 Peak HR (bpm): 156 Resting BP (mmHg): 138 / 83 Peak BP (mmHg): 206 / 96 MPHR: 155 Target HR: 132 % MPHR: 101 METS: 5.6 Total Dose: Peak Dose: Atropine: Double Product: 34274 BP Response: Stress Termination: TARGET HR/MAX EXERTION Stress Symptoms: UMA Stress Summary: ECG ANALYSIS Resting ECG: Stress ECG: CONCLUSIONS Patient underwent exercise stress EKG with a Everardo protocol treadmill stress test. Patient exercised into Stage 2 for a total of 3 minutes and 39 seconds reaching a total of 5.6 METS. Patient's maximum heart rate was 156 which represented 100% age- predicted maximum heart rate. Stress EKG findings: At baseline patient's EKG showed normal sinus rhythm, normal axis, no significant ST or T wave abnormalities. At peak exercise, EKG showed no significant change from baseline. Conclusions: 1. Normal EKG response to exercise without evidence of inducible ischemia. 2. Poor exercise capacity. Dr. Silvestre Pandey DO (Electronically Signed) Final Date: 22 January 2024 10:53
--- NOTE | 2024-01-22 12:36 | NM ---
EXAMINATION TYPE: NM stress cardiolite complete DATE OF EXAM: 01/22/2024 COMPARISON: NONE CLINICAL INDICATION: Female, 63 years old with history of R07.9 CHEST PAIN R06.02 SOB R00.0 TACHYCARD IA; TECHNIQUE: After the intravenous administration of 9.8 mCi Tc 99m Sestamibi - Rest images obtained 4 4 minutes post injection. The patient exercised using a CALLIE protocol and 1 minute prior to peak e xercise was injected with 25.5 mCi Tc 99m Sestamibi - Stress images obtained 8 minutes post injection . FINDINGS: Targeted heart rate was achieved during performance of the study. Review of stress and rest SPECT mirza ges demonstrates increased perfusion in the anterior wall which improve significantly on stress imagi ng. No definite evidence for reversible ischemia. Gated analysis shows normal wall motion with an est imated left ventricular ejection fraction of 72 %. IMPRESSION: No scintigraphic evidence for reversible ischemia
== END | disposition home or self-care (01) ==
LOC: RADNMMAIN 07:44
PROVIDERS: ATTEND Family Medicine
DX: R07.9 Chest pain, unspecified (principal); R06.02 Shortness of breath; R00.0 Tachycardia, unspecified
CPT/HCPCS: 93017; 78452; A9500

== ENCOUNTER → 2024-02-14 | Outpatient (CLI) | payer MEDICARE ==
--- NOTE | 2024-02-20 21:14 | CTL ---
EXAMINATION TYPE: CT Low Dose Lung DATE OF EXAM: 02/14/2024 11:31 AM CLINICAL INDICATION:Female, 63 years old with history of Z12.2 encounter for screening F17.210 NICOTI NE DEPENDENCE, cigarettes. Personal hx of nicotine dependence 1ppd X 43 years current smoker , histor y of tobacco use. COMPARISON: CT low dose lung for 02/12/2023 TECHNIQUE: Multiple axial non-contrast scans were obtained from approximately the lung apices through the upper abdomen. Coronal and sagittal reformatted images were obtained. Low dose technique was uti lized. CT DLP: 112.2 mGycm, Automated exposure control for dose reduction was used. CT Contrast: Contrast used: None Oral contrast used: None FINDINGS: ======== Lack of intravenous contrast and low dose technique limits the evaluation of the vascular and soft ti ssue structures. LUNGS: No evidence of pulmonary fibrosis. No evidence of focal consolidation, pneumothorax or pleural effusion. Biapical pleural thickening and changes of mild emphysema, subpleural nodules noted involving the julian g apices measuring less than 5 mm are stable. No pleural effusion or pneumothorax. No pleural parench ymal calcifications. Prior exam 5 mm right lower lobe nodule stable image 141. 5 mm left lower lobe nodule image 151 stable. 3 mm left upper lobe nodule axial image 121 stable. 5 mm nodule lobulated 5 stable left lower lobe pulmonary Groundglass faint density superior segment left lower lobe axial image 66 measures 6 mm and stable Current exam: 5 mm right lower lobe nodule stable 5 mm left lower lobe nodule stable. 3 mm left upper lobe nodule stable. 5 mm nodule lobulated 5 mm stable left lower lobe pulmonary Groundglass faint density superior segment left lower lobe axial measures 6 mm and stable. AIRWAY: Patent and unremarkable. HEART: Size within normal limits. MEDIASTINUM: No gross evidence of adenopathy. VASCULATURE: No aortic aneurysm. MUSCULOSKELETAL: No acute osseous abnormalities SOFT TISSUES/LYMPH NODES: Unremarkable. LOWER NECK: No significant findings. UPPER ABDOMEN: Cholecystectomy clips at the gallbladder fossa. No acute findings on limited included images. IMPRESSION: 1. No clinically significant pulmonary nodules. CT LUNG RAD AND CT CHEST RECOMMENDATION: 2: Benign appearance and/or behavior S Modifier (other clinically significant findings): None. Recommend smoking cessation (if current smoker), or continuation of smoking cessation (if prior smoke r). Annual screening for lung cancer with low-dose computed tomography is recommended in adults ages 55 to 77 years who have a 30 pack-year smoking history and currently smoke or have quit within the pa st 15 years. Screening should be discontinued once a person has not smoked for 15 years or develops a health problem that substantially limits life expectancy or the ability or willingness to have curat claire lung surgery. Lung rads 2021 [email or web address]
== END | disposition home or self-care (01) ==
LOC: RADCTMAIN 11:02
PROVIDERS: ATTEND Family Medicine
DX: Z12.2 Encounter for screening for malignant neoplasm of respiratory organs (principal); F17.210 Nicotine dependence, cigarettes, uncomplicated
CPT/HCPCS: 71271

== ENCOUNTER → 2024-05-18 | Outpatient (CLI) | payer MEDICARE ==
--- NOTE | 2024-05-18 10:28 | USB ---
Reason for Exam: Follow-up at short interval from prior study. Patient History: Menarche at age 8. Patient has no children. Postmenopausal. Benign Cyst Aspiration on the right side. 01/13/2019, Benign Core Biopsy on the left side. Risk Values: Sarah 5 year model risk: 2.4%. NCI Lifetime model risk: 8.6%. Technique: Method: Targeted. Prior Study Comparison: 04/04/2021 Bilateral Screening Mammogram, [facility]. 04/19/2022 Bilateral MG screening mammo w CAD, [facility]. 01/20/2024 Bilateral MG 3D diag mammo w/cad [facility], [facility]. Findings: The axilla of the left breast was scanned. Left axillary lymph node is essentially unchanged with short axis measurement of 6 mm and craniocaudal measurement of 2.5 cm. Cortex measures approximately 3 mm unchanged from prior study. 6 month follow-up advised. Overall Assessment: Probably benign, BI-RAD 3 Management: Diagnostic Breast Ultrasound of the left breast in 6 months. A clinical breast exam by your physician is recommended on an annual basis and results should be correlated with mammographic findings. This exam should not preclude additional follow-up of suspicious palpable abnormalities. Results were given to the patient verbally at the time of exam. Electronically signed and approved by: Michael Mcknight M.D. Radiologis
== END | disposition home or self-care (01) ==
LOC: RADUSWWP 09:59
PROVIDERS: ATTEND Family Medicine
DX: R92.8 Other abnormal and inconclusive findings on diagnostic imaging of breast (principal); Z78.0 Asymptomatic menopausal state

== ENCOUNTER → 2025-01-21 | Outpatient (CLI) | payer MEDICARE ==
--- NOTE | 2025-01-21 15:12 | USB ---
Reason for Exam: Follow-up at short interval from prior study. Patient History: Menarche at age 8. Patient has no children. Postmenopausal. Benign Cyst Aspiration on the right side. 01/13/2019, Benign Core Biopsy on the left side. Risk Values: Sarah 5 year model risk: 2.4%. NCI Lifetime model risk: 8.6%. Technique: Method: Targeted. Prior Study Comparison: 04/04/2021 Bilateral Screening Mammogram, [facility]. 04/19/2022 Bilateral MG screening mammo w CAD, [facility]. 01/20/2024 Bilateral MG 3D diag mammo w/cad [facility], [facility]. Findings: The axilla of the left breast and the retroareolar of the left breast were scanned. Left axillary lymph node is essentially unchanged with short axis measurement of 6 mm and craniocaudal measurement of 2.5 cm. Cortex measures approximately 3 mm unchanged from prior study. 6 month follow-up advised. Given stability this is likely reactive in nature. No further follow-up is felt to be necessary. Overall Assessment: Benign, BI-RAD 2 Management: Screening Mammogram of both breasts in 1 month. A clinical breast exam by your physician is recommended on an annual basis and results should be correlated with mammographic findings. This exam should not preclude additional follow-up of suspicious palpable abnormalities. Results were given to the patient verbally at the time of exam. [facility], , 01/21/2025 3:09 PM. Electronically signed and approved by: Michael Mcknight M.D. Radiologis
== END | disposition home or self-care (01) ==
LOC: RADUSWWP 14:44
PROVIDERS: ATTEND Family Medicine
DX: R92.8 Other abnormal and inconclusive findings on diagnostic imaging of breast (principal); Z78.0 Asymptomatic menopausal state

== ENCOUNTER → 2025-02-15 | Outpatient (CLI) | payer MEDICARE ==
--- NOTE | 2025-02-15 16:13 | CTL ---
EXAMINATION TYPE: CT Low Dose Lung DATE OF EXAM: 02/15/2025 3:50 PM COMPARISON: 02/14/2024 CLINICAL INDICATION: Female, 64 years old with history of Z122 SCREENING [id number] CURRENT SMOKER, CURRE NT SMOKER, 1 PACK A DAY FOR 43 YEARS, History of tobacco use. TECHNIQUE: Low dose computed tomography scan was performed through the chest at 1 mm thick sections a nd reconstructed images in multiple planes at 1 mm and [address] DLP: 78.8 mGycm, CT CTDI: 2.4 mGy, Automated exposure control for dose reduction was used. CT DIAGNOSTIC QUALITY: Satisfactory FINDINGS: Heart is normal size without pericardial effusion. Aorta normal caliber with mild atherosclerotic arch calcifications and conventional arch vessel branc shantanu anatomy. No thoracic adenopathy by CT size criteria. Mild diffuse bronchial wall thickening. Mild emphysematous change. No consolidation or pleural effusi on. * 1.1 cm ground glass nodule posterior left upper lung previously measured 9 mm * 4 mm lingular pulmonary nodule anterior left midlung unchanged * A couple 5 mm pulmonary nodules posterior left midlung are unchanged. There is a small hiatal hernia. Bones: No osseous destructive process. IMPRESSION: 1. LungRADS Category 2 (benign appearance or behavior, <1% chance of malignancy); note that a gradual ly enlarging 1.1 cm groundglass nodule posterior left upper lung should continue to be reassessed at annual screening. It meets benign criteria at this time. 2. COPD with mild emphysema. Recommend smoking cessation. CT LUNG RAD AND CT CHEST RECOMMENDATION: Lung-Rad 2 Benign Appearance or Behavior: Continue annual sc reening with LDCT in 12 months. S Modifier (other clinically significant findings): None [facility], Workstation: [employer], 02/15/2025 4:11 PM
== END | disposition home or self-care (01) ==
LOC: RADCTMAIN 11:05
PROVIDERS: ATTEND Family Medicine
DX: Z12.2 Encounter for screening for malignant neoplasm of respiratory organs (principal); F17.210 Nicotine dependence, cigarettes, uncomplicated; J44.9 Chronic obstructive pulmonary disease, unspecified; J43.9 Emphysema, unspecified
CPT/HCPCS: 71271